=== PATIENT | male | born 1980 | race African-American/Black ===

== ENCOUNTER 2019-07-23 20:41 | Emergency (ER) | payer SELFPAY ==
[~2019-07-23] VITALS: Ht 167.6 cm; Wt 69.9 kg
[2019-07-23 21:25] VITALS: Ht 167.6 cm; Wt 69.9 kg
[2019-07-23 21:33] LABS: BASOPHIL % 0.4 % (0-2); PLATELET COUNT 219 x10^3mcL (130-400); RED CELL DISTRIBUTION WIDTH 13.2 % (11.5-14.5)
[2019-07-23 21:50] LABS: CARBON DIOXIDE 27.8 mmol/L (21-32); CHLORIDE SERUM 99 mmol/L (98-107); CREATININE SERUM 1.4 mg/dL (0.7-1.3); GFR1 > 60 mL/min; GLUCOSE SERUM 104 mg/dL (74-106); POTASSIUM SERUM 3.2 mmol/L (3.5-5.1); SODIUM SERUM 139 mmol/L (136-145)
[2019-07-23 21:55] LABS: ALKALINE PHOSPHATASE 71 U/L (46-116); ALT/SGPT 22 U/L (16-63); AST/SGOT 19 U/L (15-37); BILIRUBIN TOTAL 0.94 mg/dL (0.20-1.00); TOTAL PROTEIN, SERUM 7.8 g/dL (6.4-8.2)
[2019-07-24 00:28] LABS: AMPHETAMINE QUAL UR NONE DETECTED (See below)
[2019-07-24 01:08] VITALS: BP 115/80
== END 2019-07-24 01:08 | disposition home or self-care (01) ==
LOC: ED 20:41
PROVIDERS: Emergency Medicine
DX: R07.89 Other chest pain (principal); F41.9 Anxiety disorder, unspecified
CPT/HCPCS: 36415